=== PATIENT | female | born 1955 | race Caucasian/White ===

== ENCOUNTER 2018-02-02 20:50 | Emergency (ER) | payer OTHER ==
--- NOTE | 2018-02-02 21:07 | CPEKG ---
Heart Rate: 60 RR Interval: 1000 P-R Interval: 156 QRSD Interval: 90 QT Interval: 444 QTC Interval: 444 P [place]: 18 QRS [place]: -69 T Wave [place]: 66 EKG Severity - ABNORMAL ECG - EKG Impression: SINUS RHYTHM EKG Impression: LEFT ANTERIOR FASCICULAR BLOCK EKG Impression: BORDERLINE T ABNORMALITIES, ANTERIOR LEADS Electronically Signed By: Omar eWeks 02-Feb-2018 21:17:52
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
[2018-02-02 21:28] LABS: PLATELET COUNT 362 10^3/uL (150-400)
[2018-02-02 22:41] VITALS: BP 138/84
== END 2018-02-02 22:43 | disposition home or self-care (01) ==
DX: R00.2 Palpitations (principal)
CPT/HCPCS: 84484-PO